=== PATIENT | male | born 2000 | race Caucasian/White ===

== ENCOUNTER 2021-05-01 21:42 | Observation (INO) ==
[2021-05-01] MEDS ORDERED: ONDANSETRON INJ 2 MG/ML 2 ML VIAL IV STA (22:59)
[2021-05-01] MEDS ORDERED: MoRPHine SULFATE 4 MG/ML 1 ML CARP\\VIAL IV PRN (22:59)
[2021-05-01] MEDS ORDERED: SODIUM CHLORIDE 0.9% 1000ML 1,000 ML IV SCH (23:00)
--- NOTE | 2021-05-01 23:08 | Emergency Department Note ---
History of Present Illness General Chief complaint: Abdominal Pain Stated complaint: ABDOMINAL PAIN, BLOODY STOOL, DIARRHEA Time Seen by Provider: 05/01/21 22:54 History of Present Illness Maximum Pain Intensity: 7 This is a 20-year-old male presenting to the emergency department for evaluation of periumbilical abdominal pain, diarrhea, and blood in his stool for the past 2 days. The patient has not had fevers or chills. No chest pain, chest tightness, or shortness of breath. He reports having roughly 10 episodes of bloody diarrhea. He has never had surgery and does not have history of inflammatory bowel disease. No recent travel history or change in eating or drinking. He has not taken anything [id number] for his symptoms. He rates his discomfort a 7/10. He is usually healthy and not on medications including blood thinners. No alcohol, tobacco, or marijuana use in the past week is reported. Home Medications Medication Instructions Recorded Confirmed Type No Known Home Medications 05/01/21 05/01/21 History Allergies Allergy/AdvReac Type Severity Reaction Status Date / Time No Known Allergies Allergy Unverified 05/01/21 23:51 Past Med/Surg History Medical History No chronic diseases present Surgical History No significant past surgical history Social History Smoking Status: Never smoker Hx Alcohol Use: Yes Alcohol type: beer and wine Hx Substance Use: No Preferred Language: Bulgarian Communication Ability: Effective Lift Driver Required: No Beliefs That Will Affect Care: None Current Living Situation: Family Other Information That Helps Us Care for You: No Feels Safe at Home: Yes Safety Concerns: Feels Safe At This Time Assistive Devices: None Review of Systems A total of 10 systems reviewed and were otherwise negative Physical Exam Vital Signs Vital Signs - 24 hr 05/01/21 21:47 05/01/21 23:10 05/01/21 23:30 Temperature 36.3 C L Temperature Source Temporal Artery Scan Pulse Rate 87 87 74 Respiratory Rate 20 16 20 Respiratory Effort / Characteristics Non-Labored Spontaneous Respiratory Depth Normal Respiratory Pattern Regular Blood Pressure 137/83 124/87 134/86 Blood Pressure Mean 101 99 102 Pulse Oximetry 96 99 98 Oxygen Delivery Method Room Air Sepsis Recent Fever Within 48 Hours No Sepsis New/Unexplained Change in Mental Status No Sepsis Action Taken by Nursing No Action Required 05/02/21 00:00 05/02/21 00:30 05/02/21 01:00 Temperature Temperature Source Pulse Rate 67 74 72 Respiratory Rate 16 18 22 Respiratory Effort / Characteristics Respiratory Depth Respiratory Pattern Blood Pressure 123/78 132/87 144/81 H Blood Pressure Mean 93 102 102 Pulse Oximetry 97 98 97 Oxygen Delivery Method Sepsis Recent Fever Within 48 Hours Sepsis New/Unexplained Change in Mental Status Sepsis Action Taken by Nursing 05/02/21 02:38 05/02/21 03:00 05/02/21 04:00 Temperature Temperature Source Pulse Rate 80 71 76 Respiratory Rate 16 16 18 Respiratory Effort / Characteristics Respiratory Depth Respiratory Pattern Blood Pressure 129/77 121/74 137/68 Blood Pressure Mean 94 89 91 Pulse Oximetry 97 96 98 Oxygen Delivery Method Room Air Room Air Sepsis Recent Fever Within 48 Hours Sepsis New/Unexplained Change in Mental Status Sepsis Action Taken by Nursing VITALS: Vitals are noted on the nurse's note and reviewed by myself. Vital signs stable. GENERAL: Well-developed, well-nourished, white male who is moderately uncomfortable on presentation. NECK: Supple without nuchal rigidity. No lymphadenopathy. No thyromegaly. Cervical spine is nontender. HEART: Regular rate and rhythm without murmurs gallops or rubs. LUNGS: Clear to auscultation bilaterally without wheezes, rales or rhonchi. No retractions or accessory muscle use. ABDOMEN: Positive normal bowel sounds x 4. Soft with generalized tenderness that appears worse in the periumbilical area on palpation. No rebound or guarding. No CVA tenderness. MUSCULOSKELETAL: No muscle atrophy, erythema, or edema noted. Full range of motion in all extremities. NEURO: Patient was alert and oriented to person place and time. CN II through XII grossly intact. No focal neurological deficits. Deep tendon reflexes 2+ throughout. SKIN: The skin was without rashes, erythema, edema, or bruising. Capillary refill less than 2 seconds. Course Administered Medications Lactated Ringer's (Lr) 1,000 mls @ 125 mls/hr IV .Q8H AMAIRANI Stop: 06/01/21 08:59 Last Admin: 05/02/21 18:07 Dose: 125 mls/hr Documented by: [id number] Infusion: 05/02/21 18:03 Dose: 125 mls/hr Documented by: [id number] Admin: 05/02/21 10:03 Dose: 125 mls/hr Documented by: [id number] Morphine Sulfate (Morphine Sulfate 4 Mg/Ml 1 Ml Carp\Vial) 4 mg IV Q6H PRN PRN Reason: Severe Pain Stop: 05/16/21 05:34 Last Admin: 05/02/21 18:13 Dose: 4 mg Documented by: [id number] Admin: 05/02/21 05:54 Dose: 4 mg Documented by: [id number] Ondansetron HCl (Ondansetron Inj 2 Mg/Ml 2 Ml Vial) 4 mg IV Q6H PRN PRN Reason: Nausea Stop: 06/01/21 05:34 Last Admin: 05/02/21 18:13 Dose: 4 mg Documented by: [id number] Raspberry (Raspberry Syrup 5 Ml Udp) 5 ml PO Q6 AMAIRANI Stop: 05/12/21 05:59 Last Admin: 05/02/21 18:07 Dose: 5 ml Documented by: [id number] Admin: 05/02/21 11:58 Dose: 5 ml Documented by: [id number] Admin: 05/02/21 05:54 Dose: 5 ml Documented by: [id number] Vancomycin HCl (Vancomycin Hcl 125 Mg/2.5ml Soln) 125 mg PO Q6 AMAIRANI Stop: 05/12/21 05:59 Last Admin: 05/02/21 18:07 Dose: 125 mg Documented by: [id number] Admin: 05/02/21 11:58 Dose: 125 mg Documented by: [id number] Admin: 05/02/21 05:54 Dose: 125 mg Documented by: [id number] Discontinued Medications Sodium Chloride (Nss 1000ml) 1,000 mls @ 999 mls/hr IV .Q1H1M AMAIRANI Stop: 05/02/21 00:00 Last Infusion: 05/02/21 00:14 Dose: 0 mls/hr Documented by: [id number] Admin: 05/01/21 23:07 Dose: 999 mls/hr Documented by: [id number] Ioversol (Optiray 320 100ml) 83 ml IV ONCE ONE Stop: 05/02/21 02:05 Last Admin: 05/02/21 02:04 Dose: 83 ml Documented by: [id number] Morphine Sulfate (Morphine Sulfate 4 Mg/Ml 1 Ml Carp\Vial) 4 mg IV Q30M PRN PRN Reason: Pain Stop: 05/15/21 22:58 Last Admin: 05/01/21 23:07 Dose: 4 mg Documented by: [id number] Ondansetron HCl (Ondansetron Inj 2 Mg/Ml 2 Ml Vial) 4 mg IV NOW STA Stop: 05/01/21 23:00 Last Admin: 05/01/21 23:07 Dose: 4 mg Documented by: [id number] Potassium Chloride (Potassium Chloride Crtab 20 Meq Tabcr) 40 meq PO NOW STA Stop: 05/02/21 06:04 Last Admin: 05/02/21 06:15 Dose: 40 meq Documented by: [id number] Raspberry (Raspberry Syrup 5 Ml Udp) 5 ml PO NOW STA Stop: 05/02/21 03:29 Last Admin: 05/02/21 04:14 Dose: 5 ml Documented by: [id number] Vancomycin HCl (Vancomycin Hcl 125 Mg/2.5ml Soln) 125 mg PO NOW STA Stop: 05/02/21 03:23 Last Admin: 05/02/21 04:14 Dose: 125 mg Documented by: [id number] Medical Decision Making Differential Diagnosis Differential diagnosis: Etiologies such as biliary colic, cholecystitis, hepatitis, pancreatitis, cardiac disease, pancreatitis, gastritis, peptic ulcer disease, appendicitis, cystitis, diverticulitis, mesenteric ischemia, inflammatory bowel disease, ileus, bowel obstruction, testicular/adnexal torsion, aortic pathology, shingles, as well as others were considered Laboratory Data Result diagrams: 05/02/21 08:54 05/02/21 08:54 Lab Results 05/01/21 05/01/21 05/01/21 Range/Units 22:35 22:35 22:35 WBC 12.50 H (4.8-10.8) K/uL RBC 5.07 (4.7-6.1) M/uL Hgb 14.8 (14.0-18.0) g/dL Hct 42.9 (42-52) % MCV 84.6 (80-100) fL MCH 29.2 (25-34) pg MCHC 34.5 (32-36) g/dL RDW Std Deviation 37.6 (36.4-46.3) fL RDW Coeff of [place] 12.3 (11.5-14.5) % Plt Count 313 (130-400) K/uL MPV 8.7 (7.4-10.4) fL Immature Gran % (Auto) 0.2 % Neut % (Auto) 66.8 % Lymph % (Auto) 19.6 % [place] % (Auto) 10.8 % Eos % (Auto) 2.1 % Baso % (Auto) 0.5 % Neut # (Auto) 8.35 H (1.4-6.5) K/uL Lymph # (Auto) 2.45 (1.2-3.4) K/uL [place] # (Auto) 1.35 H (0.11-0.59) K/uL Eos # (Auto) 0.26 (0-0.5) K/uL Baso # (Auto) 0.06 (0-0.2) K/uL Immature Gran # (Auto) 0.03 H (0.00-0.02) K/uL ESR 18 H (0-15) mm/hr PT 10.4 (9.0-12.0) Seconds INR 1.0 (0.9-1.1) APTT 30.2 (21.0-31.0) Seconds PTT Ratio 1.1 Sodium (136-145) mmol/L Potassium (3.5-5.1) mmol/L Chloride (98-107) mmol/L Carbon Dioxide (21-32) mmol/L Anion Gap (3-11) BUN (7-18) mg/dl Creatinine (0.6-1.4) mg/dl Est Cr Clr Drug Dosing ml/min Est GFR ( Amer) ml/min Est GFR (Non-Af Amer) ml/min BUN/Creatinine Ratio (10-20) Glucose (70-99) mg/dl Calcium (8.5-10.1) mg/dl Magnesium (1.8-2.4) mg/dl Total Bilirubin (0.2-1) mg/dl AST (15-37) U/L ALT (12-78) U/L Alkaline Phosphatase (45-117) U/L C-Reactive Protein (0-0.29) mg/dl Total Protein (6.4-8.2) gm/dl Albumin (3.4-5.0) gm/dl Globulin (2.5-4.0) gm/dl Albumin/Globulin Ratio (0.9-2) Lipase (73-393) U/L Urine Color Urine Appearance (Clear) Urine pH (4.5-7.5) Ur Specific [place] (1.000-1.030) Urine Protein (Negative) Urine Glucose (UA) (Negative) Urine Ketones (Negative) Urine Blood (Negative) Urine Nitrite (Negative) Urine Bilirubin (Negative) Urine Urobilinogen (Negative) Ur Leukocyte Esterase (Negative) Urine WBC (Auto) (0-5) /hpf Urine RBC (Auto) (0-4) /hpf U Hyaline Cast (Auto) (0-5) /lpf U Epithel Cells (Auto) (0-5) /lpf Urine Bacteria (Auto) (Negative) Stl C. diff Tox B Gene (Neg) Stl C.difficile Tox A&B (Negative) COVID-19 Eval Order SARS-CoV-2 (PCR) (Negative) 05/01/21 05/01/21 05/02/21 Range/Units 22:35 22:35 00:25 WBC (4.8-10.8) K/uL RBC (4.7-6.1) M/uL Hgb (14.0-18.0) g/dL Hct (42-52) % MCV (80-100) fL MCH (25-34) pg MCHC (32-36) g/dL RDW Std Deviation (36.4-46.3) fL RDW Coeff of [place] (11.5-14.5) % Plt Count (130-400) K/uL MPV (7.4-10.4) fL Immature Gran % (Auto) % Neut % (Auto) % Lymph % (Auto) % [place] % (Auto) % Eos % (Auto) % Baso % (Auto) % Neut # (Auto) (1.4-6.5) K/uL Lymph # (Auto) (1.2-3.4) K/uL [place] # (Auto) (0.11-0.59) K/uL Eos # (Auto) (0-0.5) K/uL Baso # (Auto) (0-0.2) K/uL Immature Gran # (Auto) (0.00-0.02) K/uL ESR (0-15) mm/hr PT (9.0-12.0) Seconds INR (0.9-1.1) APTT (21.0-31.0) Seconds PTT Ratio Sodium 140 (136-145) mmol/L Potassium 3.5 (3.5-5.1) mmol/L Chloride 107 (98-107) mmol/L Carbon Dioxide 27 (21-32) mmol/L Anion Gap 6.0 (3-11) BUN 11 (7-18) mg/dl Creatinine 1.05 (0.6-1.4) mg/dl Est Cr Clr Drug Dosing 110.6 ml/min Est GFR ( Amer) 117.0 ml/min Est GFR (Non-Af Amer) 101.0 ml/min BUN/Creatinine Ratio 10.6 (10-20) Glucose 91 (70-99) mg/dl Calcium 9.7 (8.5-10.1) mg/dl Magnesium 2.2 (1.8-2.4) mg/dl Total Bilirubin 0.7 (0.2-1) mg/dl AST 11 L (15-37) U/L ALT 22 (12-78) U/L Alkaline Phosphatase 65 (45-117) U/L C-Reactive Protein 1.46 H (0-0.29) mg/dl Total Protein 8.1 (6.4-8.2) gm/dl Albumin 4.3 (3.4-5.0) gm/dl Globulin 3.8 (2.5-4.0) gm/dl Albumin/Globulin Ratio 1.1 (0.9-2) Lipase 71 L (73-393) U/L Urine Color Yellow Urine Appearance Turbid A (Clear) Urine pH 8.5 H (4.5-7.5) Ur Specific [place] 1.022 (1.000-1.030) Urine Protein Negative (Negative) Urine Glucose (UA) Negative (Negative) Urine Ketones Negative (Negative) Urine Blood Negative (Negative) Urine Nitrite Negative (Negative) Urine Bilirubin Negative (Negative) Urine Urobilinogen Negative (Negative) Ur Leukocyte Esterase Negative (Negative) Urine WBC (Auto) 0 (0-5) /hpf Urine RBC (Auto) 0-4 (0-4) /hpf U Hyaline Cast (Auto) 0 (0-5) /lpf U Epithel Cells (Auto) 0-5 (0-5) /lpf Urine Bacteria (Auto) Negative (Negative) Stl C. diff Tox B Gene Positive Cdiff Gene H (Neg) Stl C.difficile Tox A&B Positive Cdiff Toxin A* (Negative) COVID-19 Eval Order SARS-CoV-2 (PCR) (Negative) 05/02/21 05/02/21 Range/Units 03:25 03:25 WBC (4.8-10.8) K/uL RBC (4.7-6.1) M/uL Hgb (14.0-18.0) g/dL Hct (42-52) % MCV (80-100) fL MCH (25-34) pg MCHC (32-36) g/dL RDW Std Deviation (36.4-46.3) fL RDW Coeff of [place] (11.5-14.5) % Plt Count (130-400) K/uL MPV (7.4-10.4) fL Immature Gran % (Auto) % Neut % (Auto) % Lymph % (Auto) % [place] % (Auto) % Eos % (Auto) % Baso % (Auto) % Neut # (Auto) (1.4-6.5) K/uL Lymph # (Auto) (1.2-3.4) K/uL [place] # (Auto) (0.11-0.59) K/uL Eos # (Auto) (0-0.5) K/uL Baso # (Auto) (0-0.2) K/uL Immature Gran # (Auto) (0.00-0.02) K/uL ESR (0-15) mm/hr PT (9.0-12.0) Seconds INR (0.9-1.1) APTT (21.0-31.0) Seconds PTT Ratio Sodium (136-145) mmol/L Potassium (3.5-5.1) mmol/L Chloride (98-107) mmol/L Carbon Dioxide (21-32) mmol/L Anion Gap (3-11) BUN (7-18) mg/dl Creatinine (0.6-1.4) mg/dl Est Cr Clr Drug Dosing ml/min Est GFR ( Amer) ml/min Est GFR (Non-Af Amer) ml/min BUN/Creatinine Ratio (10-20) Glucose (70-99) mg/dl Calcium (8.5-10.1) mg/dl Magnesium (1.8-2.4) mg/dl Total Bilirubin (0.2-1) mg/dl AST (15-37) U/L ALT (12-78) U/L Alkaline Phosphatase (45-117) U/L C-Reactive Protein (0-0.29) mg/dl Total Protein (6.4-8.2) gm/dl Albumin (3.4-5.0) gm/dl Globulin (2.5-4.0) gm/dl Albumin/Globulin Ratio (0.9-2) Lipase (73-393) U/L Urine Color Urine Appearance (Clear) Urine pH (4.5-7.5) Ur Specific [place] (1.000-1.030) Urine Protein (Negative) Urine Glucose (UA) (Negative) Urine Ketones (Negative) Urine Blood (Negative) Urine Nitrite (Negative) Urine Bilirubin (Negative) Urine Urobilinogen (Negative) Ur Leukocyte Esterase (Negative) Urine WBC (Auto) (0-5) /hpf Urine RBC (Auto) (0-4) /hpf U Hyaline Cast (Auto) (0-5) /lpf U Epithel Cells (Auto) (0-5) /lpf Urine Bacteria (Auto) (Negative) Stl C. diff Tox B Gene (Neg) Stl C.difficile Tox A&B (Negative) COVID-19 Eval Order Covid19 at [facility] SARS-CoV-2 (PCR) NEGATIVE (Negative) Imaging Data Radiologist's Impression: Abdomen/Pelvis CT 05/01/21 22:59 CT OF THE ABDOMEN AND PELVIS WITH CONTRAST CLINICAL HISTORY: Mid abdominal pain. Blood in stools. COMPARISON STUDY: None. TECHNIQUE: Following IV administration of 83 mL of Optiray, axial images of the abdomen and pelvis were obtained from the lung bases to the proximal femurs. Images were reviewed in the axial, sagittal, and coronal planes. IV contrast was administered without complication. Automated exposure control was utilized for the study. A dose lowering technique was utilized adhering to the principles of ALARA. Oral contrast was administered. CT DOSE: 420.82 mGy.cm FINDINGS: Lung bases are unremarkable. No pneumatosis, free air or portal venous gas is present. The liver, spleen, adrenal glands, kidneys and pancreas are normal. There is no biliary or pancreatic ductal dilatation. There is no hydronephrosis or hydroureter. Sensitivity for detection of urinary calculi is diminished given excreted contrast is no evidence for a bowel obstruction. The appendix is normal. Note is made of wall thickening with mucosal hyperemia of the rectum and the entire colon. There is no free air or abscess. Major vasculature is patent. There is no free fluid. There is no evidence for a bowel obstruction. IMPRESSION: Wall thickening of the colon and rectum. This represents a proctocolitis. Differential considerations include an infectious etiology or inflammatory bowel disease such as ulcerative colitis or less likely Crohn's. No free air or abscess. ACT 112: Negative or not required by law. Electronically signed by: Jaziel Snowden M.D. 05/02/2021 8:13 AM MDM Narrative Physical exam and history were performed. Nursing notes, EMR, and Medication List were personally reviewed. Patient appears to have abdominal pain and bloody stool bringing him to the ER. IV access was established and labs were obtained. He was hydrated with normal saline and given IV morphine and IV Zofran for comfort. He was made n.p.o. and prepped for CT scan with IV and oral contrast. Stool studies were ordered. The patient's blood work is as above and was reviewed. The patient does have a slightly elevated white blood cell count of 12,000. He does not have significant anemia, bandemia, or gross electrolyte imbalance. Sed rate and CRP are both elevated. Urine is without evidence of infection. The patient's C. difficile gene and toxin are both POSITIVE. The patient's CT scan is as above and was reviewed. He does have findings of proctocolitis on imaging, which are likely from the C. difficile infection, but certainly could represent ulcerative colitis or Crohn's. The case was discussed with my attending physician. The patient was updated on his findings. The patient initially wanted to go home, and I did review the case with GI. GI did recommend admission due to the patient's age and atypical findings. The patient was much more amenable to staying after speaking with GI. He was started on p.o. vancomycin. Covid was performed and negative. The case was discussed with the on-call hospitalist team who agreed to evaluate him here in the ER. Please see their dictation for further patient course, plan, and disposition. The chart was completed utilizing [employer] Speech Voice Recognition Software. Grammatical errors, random word insertions, pronoun errors, and incomplete sentences are an occasional consequence of this system due to software limit ations, ambient noise, and hardware issues. Any formal questions or concerns about the content, text, or information contained within the body of this dictation should be directly addressed to the provider for clarification. . Impression & Plan C. difficile colitis, Pancolitis Discharge Plan Visit Data Chief Complaint: Abdominal Pain Stated Complaint: ABDOMINAL PAIN, BLOODY STOOL, DIARRHEA ED Provider: Pablo Morejon ED Midlevel Provider: Paresh Amador Discharge Problem: C. difficile colitis, Pancolitis Patient Disposition: Admitted As Inpatient Discharge Instructions Interventions: ED Discharge Assessment Last Done: 05/02/21 05:18
[2021-05-01 23:12] LABS: Basophils # (auto) 0.06 K/uL (0-0.2); Basophils % (auto) 0.5 %; Eosinophils # (auto) 0.26 K/uL (0-0.5); Eosinophils % (auto) 2.1 %; Hematocrit (blood only) 42.9 % (42-52); Hemoglobin 14.8 g/dL (14.0-18.0); Immature Granulocytes # (auto) 0.03 K/uL (0.00-0.02); Immature Granulocytes % (auto) 0.2 %; Lymphocytes # (auto) 2.45 K/uL (1.2-3.4); Lymphocytes % (auto) 19.6 %; Mean Corpuscular Hemoglobin 29.2 pg (25-34); Mean Corpuscular Hgb Conc 34.5 g/dL (32-36); Mean Corpuscular Volume 84.6 fL (80-100); Mean Platelet Volume 8.7 fL (7.4-10.4); Monocytes # (auto) 1.35 K/uL (0.11-0.59); Monocytes % (auto) 10.8 %; Neutrophils # (auto) 8.35 K/uL (1.4-6.5); Neutrophils % (auto) 66.8 %; Platelet Count 313 K/uL (130-400); RDW Coefficient of Variation 12.3 % (11.5-14.5); RDW Standard Deviation 37.6 fL (36.4-46.3); Red Blood Count 5.07 M/uL (4.7-6.1)
[2021-05-01 23:20] LABS: Albumin Level 4.3 gm/dl (3.4-5.0); BUN Creatinine Ratio 10.6 (10-20); C Reactive Protein 1.46 mg/dl (0-0.29); Calcium 9.7 mg/dl (8.5-10.1); Creatinine Clr Calc Pharmacy 110.6 ml/min; Magnesium 2.2 mg/dl (1.8-2.4); Potassium 3.5 mmol/L (3.5-5.1)
[2021-05-01 23:23] LABS: Albumin Globulin Ratio 1.1 (0.9-2); Bilirubin,Total 0.7 mg/dl (0.2-1); Globulin 3.8 gm/dl (2.5-4.0); Total Protein 8.1 gm/dl (6.4-8.2)
[2021-05-01 23:24] LABS: Appearance Urine Turbid (Clear); Bacteria Urine Automated Negative (Negative); Bilirubin Urine Negative (Negative); Blood Urine Negative (Negative); Cast Urine Automated 0 /lpf (0-5); Color Urine Yellow; Epithelial Cell Urine Auto 0-5 /lpf (0-5); Glucose Urine UA Negative (Negative); Ketones Urine Negative (Negative); Leukocyte Esterase Urine Negative (Negative); Nitrite Urine Negative (Negative); Protein Urine Negative (Negative); RBC Urine Automated 0-4 /hpf (0-4); Specific Gravity Urine 1.022 (1.000-1.030); Urobilinogen Urine Negative (Negative); WBC Urine Automated 0 /hpf (0-5); pH Urine 8.5 (4.5-7.5)
[2021-05-01 23:31] LABS: Partial Thromboplastin Ratio 1.1; Partial Thromboplastin Time 30.2 Seconds (21.0-31.0); Prothrombin Time 10.4 Seconds (9.0-12.0)
[2021-05-02] MEDS ORDERED: OPTIRAY 320 100ml IV ONE (02:04)
[2021-05-02 02:19] LABS: Cdiff Antigen Positive
[2021-05-02 02:20] LABS: Cdiff Toxin A+B Positive Cdiff Toxin (Negative)
[2021-05-02] MEDS ORDERED: VANCOMYCIN HCL 125 MG/2.5ML SOLN PO STA (03:22)
[2021-05-02] MEDS ORDERED: RASPBERRY SYRUP 5 ML UDP PO STA (03:28)
--- NOTE | 2021-05-02 04:12 | History & Physical Report ---
Date of Service May 02, 2021 Assessment & Plan (1) Pancolitis: (2) C. difficile colitis: Plan: 20 yo M Hx lactose intolerance admitted for pancolitis with diagnosis of C. diff. C diff, colitis: Presented with abdominal pain, diarrhea. C diff toxin and gene positive; unclear where transmission occurred. No contact with sick persons, new restaurants, recent antibiotic use. CTAP with pancolitis. WBC count elevated. Also some concern for inflammatory bowel disease; ESR and CRP elevated though could be due to active colitis. GI follow up outpatient for colonoscopy to evaluate for IBD. Vancomycin 125mg PO q6h scheduled for 10 days of treatment. No high risk c oncerns that would warrant treatment with fidaxomicin at this time. FULL CODE Regular, low residue diet SCDs for DVT ppx Med/Surg floor History of Present Illness Chief Complaint: abdominal pain, diarrhea Primary Care Provider: DORIS PCP 20 yo M no significant PMHx lactose intolerance presented to the ER for 2 days of worsening abdominal pain, bloody diarrhea, and fatigue. He denies nausea or vomiting, chest pain, SOB, measured fevers or chills, URI symptoms, headaches. No personal or family history of inflammatory bowel disease. In the ER patient's vitals were stable. WBC count elevated to 12.5, CRP and ESR elevated. C diff gene and toxin positive. CTAP performed which showed contiguous mucosal thickening and hyper-enhancement of the rectum and sigmoid colon, with mild degree of contiguous mucosal thickening throughout the ascending and transverse colon concerning for IBD vs. infection. Patient was given vancomycin and hospitalist service was consulted for admission. Allergies Allergy/AdvReac Type Severity Reaction Status Date / Time No Known Allergies Allergy Unverified 05/01/21 23:51 Home Medications Medication Instructions Recorded Confirmed Type No Known Home Medications 05/01/21 05/01/21 History Past Med/Surg History Medical History No chronic diseases present Surgical History No significant past surgical history Social History Smoking Status: Never smoker Hx Alcohol Use: Yes Alcohol type: beer and wine Hx Substance Use: No Preferred Language: Pashto Communication Ability: Effective Photo Tech Required: No Beliefs That Will Affect Care: None Current Living Situation: Family Other Information That Helps Us Care for You: No Feels Safe at Home: Yes Safety Concerns: Feels Safe At This Time Assistive Devices: None Review of Systems Review of Systems: All systems reviewed & are unremarkable except as noted in HPI & below Constitutional: + malaise; no fever and no chills Respiratory: no cough and no dyspnea Cardiovascular: no chest pain, no palpitations and no edema Gastrointestinal: + abdominal pain, + diarrhea/loose stools and + blood in stools; no constipation Physical Exam Constitutional: WD/WN, vitals as above Eyes: PERRL, conjunctivae normal, anicteric sclerae ENMT: external ear and nose normal, oropharynx normal Neck: normal visual inspection Respiratory: normal respiratory effort, lungs clear to auscultation Cardiovascular: RRR, no murmur, no edema Gastrointestinal (Abdomen): hyperactive bowel sounds; soft non-distended abdomen with mild to moderate tenderness to palpation of right and left lower quadrants without rebound or guarding. Musculoskeletal: no cyanosis or clubbing, extremities motor strength 5/5 Skin: no rashes, warm and dry Neurologic: AAOx3, normal speech. Bilateral UE, LE, and face without sensory or motor deficits. Psychiatric: A+Ox3, euthymic affect Results & Data Results & Data ([facility]) Vital Signs (Past 12 Hours) Vital Signs Temp Pulse Resp BP Pulse Ox 05/02/21 03:00 71 16 121/74 96 05/02/21 02:38 80 16 129/77 97 05/02/21 01:00 72 22 144/81 H 97 05/02/21 00:30 74 18 132/87 98 05/02/21 00:00 67 16 123/78 97 05/01/21 23:30 74 20 134/86 98 05/01/21 23:10 87 16 124/87 99 05/01/21 21:47 36.3 C L 87 20 137/83 96 Laboratory Results Laboratory Results WBC 12.50 K/uL (4.8-10.8) H 05/01/21 22:35 RBC 5.07 M/uL (4.7-6.1) 05/01/21 22:35 Hgb 14.8 g/dL (14.0-18.0) 05/01/21 22:35 Hct 42.9 % (42-52) 05/01/21 22:35 MCV 84.6 fL (80-100) 05/01/21 22: MCH 29.2 pg (25-34) 05/01/21 22: MCHC 34.5 g/dL (32-36) 05/01/21 22:35 RDW Std Deviation 37.6 fL (36.4-46.3) 05/01/21 22: RDW Coeff of [place] 12.3 % (11.5-14.5) 05/01/21 22: Plt Count 313 K/uL (130-400) 05/01/21 22: MPV 8.7 fL (7.4-10.4) 05/01/21 22: Immature Gran % (Auto) 0.2 % 05/01/21 22:35 Neut % (Auto) 66.8 % 05/01/21 22:35 Lymph % (Auto) 19.6 % 05/01/21 22:35 [place] % (Auto) 10.8 % 05/01/21 22:35 Eos % (Auto) 2.1 % 05/01/21 22:35 Baso % (Auto) 0.5 % 05/01/21 22:35 Neut # (Auto) 8.35 K/uL (1.4-6.5) H 05/01/21 22:35 Lymph # (Auto) 2.45 K/uL (1.2-3.4) 05/01/21 22:35 [place] # (Auto) 1.35 K/uL (0.11-0.59) H 05/01/21 22:35 Eos # (Auto) 0.26 K/uL (0-0.5) 05/01/21 22:35 Baso # (Auto) 0.06 K/uL (0-0.2) 05/01/21 22:35 Immature Gran # (Auto) 0.03 K/uL (0.00-0.02) H 05/01/21 22:35 ESR 18 mm/hr (0-15) H 05/01/21 22:35 PT 10.4 Seconds (9.0-12.0) 05/01/21 22:35 INR 1.0 (0.9-1.1) 05/01/21 22:35 APTT 30.2 Seconds (21.0-31.0) 05/01/21 22:35 PTT Ratio 1.1 05/01/21 22:35 Sodium 140 mmol/L (136-145) 05/01/21 22:35 Potassium 3.5 mmol/L (3.5-5.1) 05/01/21 22:35 Chloride 107 mmol/L (98-107) 05/01/21 22:35 Carbon Dioxide 27 mmol/L (21-32) 05/01/21 22:35 Anion Gap 6.0 (3-11) 05/01/21 22:35 BUN 11 mg/dl (7-18) 05/01/21 22:35 Creatinine 1.05 mg/dl (0.6-1.4) 05/01/21 22:35 Est Cr Clr Drug Dosing 110.6 ml/min 05/01/21 22:35 Est GFR ( Amer) 117.0 ml/min 05/01/21 22:35 Est GFR (Non-Af Amer) 101.0 ml/min 05/01/21 22:35 BUN/Creatinine Ratio 10.6 (10-20) 05/01/21 22:35 Glucose 91 mg/dl (70-99) 05/01/21 22:35 Calcium 9.7 mg/dl (8.5-10.1) 05/01/21 22:35 Magnesium 2.2 mg/dl (1.8-2.4) 05/01/21 22:35 Total Bilirubin 0.7 mg/dl (0.2-1) 05/01/21 22:35 AST 11 U/L (15-37) L 05/01/21 22:35 ALT 22 U/L (12-78) 05/01/21 22:35 Alkaline Phosphatase 65 U/L (45-117) 05/01/21 22:35 C-Reactive Protein 1.46 mg/dl (0-0.29) H 05/01/21 22:35 Total Protein 8.1 gm/dl (6.4-8.2) 05/01/21 22:35 Albumin 4.3 gm/dl (3.4-5.0) 05/01/21 22:35 Globulin 3.8 gm/dl (2.5-4.0) 05/01/21 22:35 Albumin/Globulin Ratio 1.1 (0.9-2) 05/01/21 22:35 Lipase 71 U/L (73-393) L 05/01/21 22:35 Urine Color Yellow 05/01/21 22:35 Urine Appearance Turbid (Clear) A 05/01/21 22:35 Urine pH 8.5 (4.5-7.5) H 05/01/21 22:35 Ur Specific [place] 1.022 (1.000-1.030) 05/01/21 22:35 Urine Protein Negative (Negative) 05/01/21 22:35 Urine Glucose (UA) Negative (Negative) 05/01/21 22:35 Urine Ketones Negative (Negative) 05/01/21 22:35 Urine Blood Negative (Negative) 05/01/21 22:35 Urine Nitrite Negative (Negative) 05/01/21 22:35 Urine Bilirubin Negative (Negative) 05/01/21 22:35 Urine Urobilinogen Negative (Negative) 05/01/21 22:35 Ur Leukocyte Esterase Negative (Negative) 05/01/21 22:35 Urine WBC (Auto) 0 /hpf (0-5) 05/01/21 22:35 Urine RBC (Auto) 0-4 /hpf (0-4) 05/01/21 22:35 U Hyaline Cast (Auto) 0 /lpf (0-5) 05/01/21 22:35 U Epithel Cells (Auto) 0-5 /lpf (0-5) 05/01/21 22:35 Urine Bacteria (Auto) Negative (Negative) 05/01/21 22:35 Stl C. diff Tox B Gene Positive Cdiff Gene (Neg) H 05/02/21 00:25 Stl C.difficile Tox A&B Positive Cdiff Toxin (Negative) A* 05/02/21 00:25 COVID-19 Eval Order Covid19 at [facility] 05/02/21 03:25 SARS-CoV-2 (PCR) NEGATIVE (Negative) 05/02/21 03:[address] Abdomen and Pelvis with contrast: Contiguous mucosal thickening and hyperenhancement of the rectum and sigmoid colon as well as mild degree of contiguous mucosal thickening throughout the ascending and transverse colon. The appearance is concerning for inflammatory bowel disease though could also be seen with infectious colitis. No evidence of acute appendicitis. Though the appendix is not definitely visualized. No free fluid or free air. No intra- abdominal adenopathy. Code Status & VTE Plan VTE Prophylaxis Plan VTE Prophylaxis will be ordered: Yes Supervising Physician Co-Signing Physician Notes Patient seen and examined, chart reviewed, case discussed with Dr. Arciniega. In brief, patient is a 20yo male with no significant past medical or surgical history presenting with c. diff colitis. Patient reports several days of profuse, watery diarrhea with blood. He reports 10+ BMs / day. He denies fever, chills, abdominal distention but does have some suprapubic and RLQ abdominal pain. No recent antibiotics, sick contacts or contact with long-term care patients or medical settings No prior c. diff infection. He reports being lactose intolerant, otherwise no prior history of GI complaints. On exam he is afebrile, HD stable, nontoxic in appearance Skin - warm, dry, intact HEENT - NC/AT, PERRL, MMM, Neck supple Heart - +S1/S2, regular, no m/r/g Lungs - CTA no rales/rhonchi/wheezes Abd - +BS, mildly hyperactive, soft, tender in suprapubic and right lower abdomen without rebound/guarding or peritoneal signs Ext - warm, well perfused, no clubbing/cyanosis or edema Labs and images reviewed. +C. diff gene and toxin Albumin=4.3 CRP is elevated at 1.46 Cr normal at 1.05 Mild leukocytosis at 12.5 Assessment/Plan - 20yo male with no significant past medical or surgical history presenting with 2 days of profuse, watery diarrhea with blood. C. diff toxin and gene POSITIVE. CT with pancolitis. WBC=12.5. Mild by laboratory parameters. No obvious exposure or risk factors present for this patient to have c. diff - etiology uncertain -Tx with PO Vancomycin 125mg po q 6 hours -Monitor output -Should followup with GI as an outpatient after acute issues resolve to rule out inflammatory bowel disease -IVF and electroltye repletion -Pain and nausea control as needed Resident Activity Tracking Resident Involvement: Resident Care Provided Care Provided: Adult [facility] Medicine
[2021-05-02] MEDS ORDERED: ACETAMINOPHEN 325 MG TAB PO PRN (05:35)
[2021-05-02] MEDS ORDERED: ONDANSETRON INJ 2 MG/ML 2 ML VIAL IV PRN (05:35)
--- NOTE | 2021-05-02 05:43 | Billing Data ---
Date of Service May 02, 2021 Coding Level of Care Code INT OBSERVATION CARE 50M LVL 2
[2021-05-02] MEDS: VANCOMYCIN HCL 125 MG/2.5ML SOLN PO SCH ×3 (05:54→18:07)
[2021-05-02] MEDS: RASPBERRY SYRUP 5 ML UDP PO SCH ×3 (05:54→18:07)
[2021-05-02] MEDS: MoRPHine SULFATE 4 MG/ML 1 ML CARP\\VIAL IV PRN ×2 (05:54→18:13)
[2021-05-02] MEDS ORDERED: POTASSIUM CHLORIDE CRTAB 20 MEQ TABCR PO STA (06:03)
--- NOTE | 2021-05-02 08:14 | CT Scan Report ---
CT OF THE ABDOMEN AND PELVIS WITH CONTRAST CLINICAL HISTORY: Mid abdominal pain. Blood in stools. COMPARISON STUDY: None. TECHNIQUE: Following IV administration of 83 mL of Optiray, axial images of the abdomen and pelvis we re obtained from the lung bases to the proximal femurs. Images were reviewed in the axial, sagittal, and coronal planes. IV contrast was administered without complication. Automated exposure control wa s utilized for the study. A dose lowering technique was utilized adhering to the principles of ALARA . Oral contrast was administered. CT DOSE: 420.82 mGy.cm FINDINGS: Lung bases are unremarkable. No pneumatosis, free air or portal venous gas is present. The liver, spleen, adrenal glands, kidneys and pancreas are normal. There is no biliary or pancreatic carlo maxwell dilatation. There is no hydronephrosis or hydroureter. Sensitivity for detection of urinary calcu li is diminished given excreted contrast is no evidence for a bowel obstruction. The appendix is norm al. Note is made of wall thickening with mucosal hyperemia of the rectum and the entire colon. There is no free air or abscess. Major vasculature is patent. There is no free fluid. There is no evidence for a bowel obstruction. IMPRESSION: Wall thickening of the colon and rectum. This represents a proctocolitis. Differential c onsiderations include an infectious etiology or inflammatory bowel disease such as ulcerative colitis or less likely Crohn's. No free air or abscess. ACT 112: Negative or not required by law. Electronically signed by: Jaziel Snowden M.D. 05/02/2021 8:13 AM
[2021-05-02 09:24] LABS: Basophils # (auto) 0.09 K/uL (0-0.2); Basophils % (auto) 0.9 %; Eosinophils # (auto) 0.34 K/uL (0-0.5); Eosinophils % (auto) 3.3 %; Hematocrit (blood only) 38.7 % (42-52); Hemoglobin 13.3 g/dL (14.0-18.0); Immature Granulocytes # (auto) 0.02 K/uL (0.00-0.02); Immature Granulocytes % (auto) 0.2 %; Lymphocytes # (auto) 2.59 K/uL (1.2-3.4); Lymphocytes % (auto) 25.3 %; Mean Corpuscular Hemoglobin 29.4 pg (25-34); Mean Corpuscular Hgb Conc 34.4 g/dL (32-36); Mean Corpuscular Volume 85.4 fL (80-100); Mean Platelet Volume 8.4 fL (7.4-10.4); Monocytes # (auto) 1.09 K/uL (0.11-0.59); Monocytes % (auto) 10.6 %; Neutrophils # (auto) 6.12 K/uL (1.4-6.5); Neutrophils % (auto) 59.7 %; Platelet Count 267 K/uL (130-400); RDW Coefficient of Variation 12.4 % (11.5-14.5); RDW Standard Deviation 38.7 fL (36.4-46.3); Red Blood Count 4.53 M/uL (4.7-6.1); White Blood Count 10.25 K/uL (4.8-10.8)
[2021-05-02 09:57] LABS: Albumin Level 3.4 gm/dl (3.4-5.0); BUN Creatinine Ratio 8.5 (10-20); Bilirubin,Total 0.8 mg/dl (0.2-1); Calcium 8.9 mg/dl (8.5-10.1); Creatinine Clr Calc Pharmacy 117.4 ml/min; Est GFR (African American) 125.7 ml/min; Est GFR (Non-African American) 108.4 ml/min; Globulin 3.5 gm/dl (2.5-4.0); Magnesium 2.3 mg/dl (1.8-2.4); Potassium 4.2 mmol/L (3.5-5.1); Total Protein 6.9 gm/dl (6.4-8.2)
[2021-05-02] MEDS: LACTATED RINGER'S 1,000 ML IV SCH ×2 (10:03→18:07)
--- NOTE | 2021-05-02 14:01 | History & Physical Bridge Note ---
Date of Service May 02, 2021 History & Physical Bridge Note I have examined the patient, reviewed the History & Physical and in the interval since the performance of the History & Physical I have noted the following changes of clinical significance: no changes noted Patient has had 2 loose watery bowel movements here. The blood that he has had at home was bright red and not a large amount. He has some mild abdominal discomfort, no nausea or vomiting and is tolerating p.o. well. He has no history of recent weight loss or fevers, no chronic diarrhea, no indigestion or heartburn. No inflammatory bowel disease or any medical problems in his immediate family members. He denies any close contact with anyone else with C. difficile or diarrheal illness. He denies any contact with the healthcare setting. 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 Follow stool culture-pending Abdomen positive bowel sounds soft minimal tenderness in the right side of abdomen without guarding or rebound Heart regular rate and rhythm, no murmurs gallops rubs Lungs clear to auscultation bilaterally No acute distress, alert awake oriented x3 20-year-old male here with C. difficile colitis Continue current care, restarted IV fluids with LR at 125 mL's per hour Continue p.o. vancomycin x10-day course If diarrhea improving and remains hydrated, could discharge to home tomorrow
[2021-05-03] MEDS: RASPBERRY SYRUP 5 ML UDP PO SCH ×4 (00:58→17:53)
[2021-05-03] MEDS: VANCOMYCIN HCL 125 MG/2.5ML SOLN PO SCH ×4 (00:58→17:53)
[2021-05-03] MEDS: LACTATED RINGER'S 1,000 ML IV SCH ×3 (01:02→16:06)
[2021-05-03 07:25] LABS: Basophils # (auto) 0.05 K/uL (0-0.2); Basophils % (auto) 0.6 %; Eosinophils # (auto) 0.38 K/uL (0-0.5); Eosinophils % (auto) 4.8 %; Hematocrit (blood only) 38.3 % (42-52); Immature Granulocytes # (auto) 0.02 K/uL (0.00-0.02); Immature Granulocytes % (auto) 0.3 %; Lymphocytes % (auto) 26.8 %; Mean Corpuscular Hgb Conc 33.9 g/dL (32-36); Mean Corpuscular Volume 85.5 fL (80-100); Mean Platelet Volume 8.3 fL (7.4-10.4); Monocytes # (auto) 0.93 K/uL (0.11-0.59); Monocytes % (auto) 11.9 %; Neutrophils # (auto) 4.36 K/uL (1.4-6.5); Neutrophils % (auto) 55.6 %; Platelet Count 248 K/uL (130-400); RDW Coefficient of Variation 12.4 % (11.5-14.5); RDW Standard Deviation 38.5 fL (36.4-46.3); Red Blood Count 4.48 M/uL (4.7-6.1); White Blood Count 7.84 K/uL (4.8-10.8)
[2021-05-03 08:03] LABS: BUN Creatinine Ratio 8.9 (10-20); Calcium 9.1 mg/dl (8.5-10.1); Creatinine Clr Calc Pharmacy 126.3 ml/min; Est GFR (African American) 137.3 ml/min; Est GFR (Non-African American) 118.5 ml/min
--- NOTE | 2021-05-03 18:36 | Discharge Summary ---
Date of Service May 03, 2021 Admission HPI Per Admitting Provider 20 yo M no significant PMHx lactose intolerance presented to the ER for 2 days of worsening abdominal pain, bloody diarrhea, and fatigue. He denies nausea or vomiting, chest pain, SOB, measured fevers or chills, URI symptoms, headaches. No personal or family history of inflammatory bowel disease. In the ER patient's vitals were stable. WBC count elevated to 12.5, CRP and ESR elevated. C diff gene and toxin positive. CTAP performed which showed contiguous mucosal thickening and hyper-enhancement of the rectum and sigmoid colon, with mild degree of contiguous mucosal thickening throughout the ascending and transverse colon concerning for IBD vs. infection. Patient was given vancomycin and hospitalist service was consulted for admission. Principal Diagnosis C. difficile colitis Discharge Exam Constitutional WD/WN, vitals as above Eyes + anicteric sclerae Neck trachea midline, no thyromegaly Respiratory normal respiratory effort, lungs clear to auscultation Cardiovascular RRR, no murmur, no edema Chest (Breasts) Chest: normal inspection of chest Gastrointestinal (Abdomen) Inspection/Auscultation: abdomen normal to inspection and normal bowel sounds Percussion/Palpation: + abdomen tender (Very minimally in the lower abdomen without guarding or rebound) and abdomen soft Musculoskeletal Extremities: extremities normal to inspection; no cyanosis and no clubbing Skin no rashes, warm and dry Neurologic moves all extremities and awake; no focal motor deficits Psychiatric A+Ox3, euthymic affect Lymphatic no lymphedema Discharge Data Allergies Allergy/AdvReac Type Severity Reaction Status Date / Time No Known Allergies Allergy Unverified 05/01/21 23:51 Consultations 05/02/21 03:27 ED Decision to Admit Stat Ordered Studies 05/01/21 22:59 CT abd pelvis oral and IV con Urgent Laboratory Results WBC 7.84 K/uL (4.8-10.8) 05/03/21 07:09 RBC 4.48 M/uL (4.7-6.1) L 05/03/21 07:09 Hgb 13.0 g/dL (14.0-18.0) L 05/03/21 07:09 Hct 38.3 % (42-52) L 05/03/21 07:09 MCV 85.5 fL (80-100) 05/03/21 07:09 MCH 29.0 pg (25-34) 05/03/21 07:09 MCHC 33.9 g/dL (32-36) 05/03/21 07:09 RDW Std Deviation 38.5 fL (36.4-46.3) 05/03/21 07:09 RDW Coeff of Dewey 12.4 % (11.5-14.5) 05/03/21 07:09 Plt Count 248 K/uL (130-400) 05/03/21 07:09 MPV 8.3 fL (7.4-10.4) 05/03/21 07:09 Immature Gran % (Auto) 0.3 % 05/03/21 07:09 Neut % (Auto) 55.6 % 05/03/21 07:09 Lymph % (Auto) 26.8 % 05/03/21 07:09 [place] % (Auto) 11.9 % 05/03/21 07:09 Eos % (Auto) 4.8 % 05/03/21 07:09 Baso % (Auto) 0.6 % 05/03/21 07:09 Neut # (Auto) 4.36 K/uL (1.4-6.5) 05/03/21 07:09 Lymph # (Auto) 2.10 K/uL (1.2-3.4) 05/03/21 07:09 [place] # (Auto) 0.93 K/uL (0.11-0.59) H 05/03/21 07:09 Eos # (Auto) 0.38 K/uL (0-0.5) 05/03/21 07:09 Baso # (Auto) 0.05 K/uL (0-0.2) 05/03/21 07:09 Immature Gran # (Auto) 0.02 K/uL (0.00-0.02) 05/03/21 07:09 ESR 18 mm/hr (0-15) H 05/01/21 22:35 PT 10.4 Seconds (9.0-12.0) 05/01/21 22:35 INR 1.0 (0.9-1.1) 05/01/21 22:35 APTT 30.2 Seconds (21.0-31.0) 05/01/21 22:35 PTT Ratio 1.1 05/01/21 22:35 Sodium 140 mmol/L (136-145) 05/03/21 07:09 Potassium 4.0 mmol/L (3.5-5.1) 05/03/21 07:09 Chloride 107 mmol/L (98-107) 05/03/21 07:09 Carbon Dioxide 26 mmol/L (21-32) 05/03/21 07:09 Anion Gap 6.0 (3-11) 05/03/21 07:09 BUN 8 mg/dl (7-18) 05/03/21 07:09 Creatinine 0.92 mg/dl (0.6-1.4) 05/03/21 07:09 Est Cr Clr Drug Dosing 126.3 ml/min 05/03/21 07:09 Est GFR ( Amer) 137.3 ml/min 05/03/21 07:09 Est GFR (Non-Af Amer) 118.5 ml/min 05/03/21 07:09 BUN/Creatinine Ratio 8.9 (10-20) L 05/03/21 07:09 Glucose 100 mg/dl (70-99) H 05/03/21 07:09 Calcium 9.1 mg/dl (8.5-10.1) 05/03/21 07:09 Magnesium 2.0 mg/dl (1.8-2.4) 05/03/21 07:09 Total Bilirubin 0.8 mg/dl (0.2-1) 05/02/21 08:54 AST 10 U/L (15-37) L 05/02/21 08:54 ALT 19 U/L (12-78) 05/02/21 08:54 Alkaline Phosphatase 55 U/L (45-117) 05/02/21 08:54 C-Reactive Protein 1.46 mg/dl (0-0.29) H 05/01/21 22:35 Total Protein 6.9 gm/dl (6.4-8.2) 05/02/21 08:54 Albumin 3.4 gm/dl (3.4-5.0) 05/02/21 08:54 Globulin 3.5 gm/dl (2.5-4.0) 05/02/21 08:54 Albumin/Globulin Ratio 1.0 (0.9-2) 05/02/21 08:54 Lipase 71 U/L (73-393) L 05/01/21 22:35 Urine Color Yellow 05/01/21 22:35 Urine Appearance Turbid (Clear) A 05/01/21 22:35 Urine pH 8.5 (4.5-7.5) H 05/01/21 22:35 Ur Specific [place] 1.022 (1.000-1.030) 05/01/21 22:35 Urine Protein Negative (Negative) 05/01/21 22:35 Urine Glucose (UA) Negative (Negative) 05/01/21 22:35 Urine Ketones Negative (Negative) 05/01/21 22:35 Urine Blood Negative (Negative) 05/01/21 22:35 Urine Nitrite Negative (Negative) 05/01/21 22:35 Urine Bilirubin Negative (Negative) 05/01/21 22:35 Urine Urobilinogen Negative (Negative) 05/01/21 22:35 Ur Leukocyte Esterase Negative (Negative) 05/01/21 22:35 Urine WBC (Auto) 0 /hpf (0-5) 05/01/21 22:35 Urine RBC (Auto) 0-4 /hpf (0-4) 05/01/21 22:35 U Hyaline Cast (Auto) 0 /lpf (0-5) 05/01/21 22:35 U Epithel Cells (Auto) 0-5 /lpf (0-5) 05/01/21 22:35 Urine Bacteria (Auto) Negative (Negative) 05/01/21 22:35 Stool Occult Bld Scrn Positive (Negative) A 05/02/21 11:45 Stl C. diff Tox B Gene Positive Cdiff Gene (Neg) H 05/02/21 00:25 Stl C.difficile Tox A&B Positive Cdiff Toxin (Negative) A* 05/02/21 00:25 COVID-19 Eval Order Covid19 at [facility] 05/02/21 03:25 SARS-CoV-2 (PCR) NEGATIVE (Negative) 05/02/21 03:25 Impressions Abdomen/Pelvis CT 05/01/21 22:59 CT OF THE ABDOMEN AND PELVIS WITH CONTRAST CLINICAL HISTORY: Mid abdominal pain. Blood in stools. COMPARISON STUDY: None. TECHNIQUE: Following IV administration of 83 mL of Optiray, axial images of the abdomen and pelvis were obtained from the lung bases to the proximal femurs. Images were reviewed in the axial, sagittal, and coronal planes. IV contrast was administered without complication. Automated exposure control was utilized for the study. A dose lowering technique was utilized adhering to the principles of ALARA. Oral contrast was administered. CT DOSE: 420.82 mGy.cm FINDINGS: Lung bases are unremarkable. No pneumatosis, free air or portal venous gas is present. The liver, spleen, adrenal glands, kidneys and pancreas are normal. There is no biliary or pancreatic ductal dilatation. There is no hydronephrosis or hydroureter. Sensitivity for detection of urinary calculi is diminished given excreted contrast is no evidence for a bowel obstruction. The appendix is normal. Note is made of wall thickening with mucosal hyperemia of the rectum and the entire colon. There is no free air or abscess. Major vasculature is patent. There is no free fluid. There is no evidence for a bowel obstruction. IMPRESSION: Wall thickening of the colon and rectum. This represents a proctocolitis. Differential considerations include an infectious etiology or inflammatory bowel disease such as ulcerative colitis or less likely Crohn's. No free air or abscess. ACT 112: Negative or not required by law. Electronically signed by: Jaziel Snowden M.D. 05/02/2021 8:13 AM Hospital Course (1) C. difficile colitis: This patient is a 20-year-old male with history of lactose intolerance but otherwise healthy who was admitted for pancolitis secondary to C. difficile. He had been having watery diarrhea with some blood in it up to 10 times a day for 2 days prior to admission. His C. difficile toxin and gene were positive, stool culture was preliminary negative at the time of discharge but was not finalized. He was heme positive here but hemoglobin was normal. His electrolytes fortunately were fairly normal. WBC count was elevated at 12 on admission and improved to normal by the time of discharge. It is unclear where he picked this up, but perhaps it is community-acquired. He has no contact with any other sick persons, no recent antibiotic use, and is not in a healthcare setting. There is no family history of inflammatory bowel disease. He improved with frequency of loose stools down to 3 times a day after 24 hours of oral vancomycin. He will be discharged home to complete a 10-day course of vancomycin 125 mg p.o. 4 times daily. Recommended that he follow-up with a heavy duty diesel mechanic after discharge to be evaluated further, perhaps with a colonoscopy in 4 to 6 weeks. Patient prefers to follow-up with a GI specialist in his hometown in [place], [place]. Doing very well and stable for discharge, tolerating a low fiber diet at the time of discharge. Stool culture was still pending at the time of discharge. (2) Pancolitis: Total Time Total Time Spent Total Time Spent (In Minutes): 35 minutes Discharge Plan Discharge Items Patient Disposition: Home - Self-Care Reason For Visit: C-DIFF PANCOLITIS Discharge Diagnosis: Clostridium difficile colitis Condition on Discharge: Good Activity: Resume your previous activity Non-emergency contact: Primary Care Provider and Arc Trimmer Call non-emergency contact if: you have any medication questions, your symptoms worsen, your pain is not controlled, your pain is worsening and you have a fever Follow-up/Referrals: [facility] [Outside] (Please follow up within 1-2 weeks.) PCP,NO [Primary Care Provider] - Diet: Low Fiber Addtl Attending Provider Instructions: Please finish out 8 more days of the antibiotic called vancomycin. This is to be taken 4 times a day. Do not take Imodium or any other antidiarrheal medication while you have C. difficile colitis. It is important for you to stay well-hydrated with drinks that have electrolytes in them such as Gatorade or Powerade. You should follow-up with the heavy duty diesel mechanic after discharge in your hometown in [place] as we discussed. If you change your mind and need help setting up an appointment with a heavy duty diesel mechanic in [place], please contact the hospital and we can help to arrange this. You should get established with [facility] as your primary care physician and follow-up with them within 1 week after discharge. Pending Studies at Discharge: Yes (Stool culture-no growth to date) Stand-Alone Forms: My [facility] [place], Work/School Release Medications and DC Order Prescriptions: New acetaminophen 325 mg Tablet 650 mg PO Q4H PRN (Reason: pain) Qty: 30 RF: 0 vancomycin [Vancocin] 125 mg capsule 125 mg PO Q6H Qty: 32 RF: 0 Discharge Orders: Discharge Order (Routine); Ordered 05/03/21 Ordered By: Marylou Morgan Admission Data Admit Date/Time: 05/02/21 04:05 Attending Provider: Marylou Morgan Admit Provider: Demian,Linda Primary Care Provider: PCP,NO Other Providers: Fozia Portillo Coding Level of Care Code 49509 OBS Care - Discharge Diagnoses Pancolitis K51.00 C. difficile colitis A04.72
== END 2021-05-03 19:00 | disposition home or self-care (01) ==
LOC: ED 21:42 → 3E 21:42 → SUATTDRO 05-02 04:05 → 3E 05-02 05:18